=== PATIENT | female | born 1995 | race Caucasian/White ===

== ENCOUNTER → 2023-11-04 | Outpatient (CLI) | payer OTHER | LOC: COL.RAD 13:55 | DX: R74.8 Abnormal levels of other serum enzymes (principal) ==

== ENCOUNTER 2024-01-12 18:01 | Outpatient (CLI) | payer OTHER ==
[~2024-01-12] VITALS: Ht 154.9 cm; Wt 72.7 kg
--- NOTE | 2024-01-12 18:19 | NUR ---
1818- PT PRESENTS TO LDR COMPLAINING OF CRAMPING/CONTRACTIONS. AMBULATORY TO ROOM LR6, CHANGED INTO GOWN. 1829- EFM X2 APPLIED. PT REPORTS LOWER ABDOMINAL CRAMPING THAT COMES AND GOES ABOUT EVERY 5-10MIN. PT DENIES LEAKING FLUID, DENIES VAGINAL BLEEDING, AND STATES THAT SHE IS FEELING BABY MOVE LESS THAN NORMAL. PLAN OF CARE FOR LABOR CHECK DISCUSSED INCLUDING SVE AND UA. PT GIVES CONSENT FOR THESE. 1839- SVE BY THIS NURSE CLOSED, THICK AND HIGH. NO BLOOD NOTED WITH EXAM. 1844- NURSING ADMISSION HISTORY AND ASSESSMENT DONE. PT HAS PROVIDED URINE SAMPLE AND THIS IS SENT TO LAB. QUESTIONS ANSWERED AND PT DENIES FURTHER NEEDS AT THIS TIME. 1906- DR KANG CALLED CHARTED, ORDERS RECEIVED FOR DISMISSAL. 1911- PT OFF MONITORS FOR DISMISSAL. PT UPDATED ON LAB RESULTS AND DR PAUL. 1924- DISCHARGE INSTRUCTIONS GIVEN AND QUESTIONS ANSWERED. PT VERBALIZES UNDERSTANDING AND SIGNS PAPERWORK. PT DISMISSED TO HOME AMBULATORY.
[2024-01-12 18:56] LABS: COLLECTION METHOD CLEAN CATCH
[2024-01-12] MEDS ORDERED: LR 1,000 ML IV PRN (19:00)
[2024-01-12] MEDS ORDERED: TRANDATE 100MG100 MG PO (19:01)
[2024-01-12] MEDS ORDERED: PRILOTC PO (19:02)
[2024-01-12] MEDS ORDERED: QUALITY CHOICE1 TA7 (19:03)
[2024-01-12] MEDS ORDERED: ASPIRIN 81M81 MG/TA2 PO (19:03)
[2024-01-12 19:04] LABS: URINE APPEARANCE CLEAR (CLEAR/HAZY); URINE BLOOD NEGATIVE (NEGATIVE); URINE COLOR YELLOW (YELLOW); URINE GLUCOSE NEGATIVE (NEGATIVE); URINE KETONE NEGATIVE (NEGATIVE); URINE NITRATE NEGATIVE (NEGATIVE); URINE PROTEIN(semi-quant) NEGATIVE (NEGATIVE); URINE UROBILINOGEN 0.2 E.U/dL (0.2-1.0)
[2024-01-12 19:12] VITALS: BP 116/74; PULSE 87; TEMP 98.4
== END 2024-01-12 19:25 | disposition home or self-care (01) ==
LOC: LDRO 18:01
PROVIDERS: Obstetrics & Gynecology
DX: O47.03 False labor before 37 completed weeks of gestation, third trimester (principal); Z3A.31 31 weeks gestation of pregnancy

== ENCOUNTER 2024-02-23 18:30 | Inpatient (IN) | payer OTHER ==
[2024-02-23] VITALS (8 sets, daily range): BP systolic 101–133; BP diastolic 54–77; PULSE 72–103; TEMP 98.4
[~2024-02-23] VITALS: Wt 75.9 kg
[~2024-02-23 18:30] MED LIST: ASPIRIN 81M81 MG/TA2 PO; Acetaminophen 325 MG TAB PO PRN; Ibuprofen 600 MG TAB PO PRN; Ibuprofen 600 MG TAB PO SCH; Ketorolac 60 MG/2 ML VIAL IM ONE; LR & Oxytocin 500 ML IV SCH; LR 1,000 ML IV SCH; Loratadine 10 MG TAB PO PRN; Mag/Al Hydrox/Simeth Susp 30 ML CUP PO PRN; Measles/Mumps/Rubella Virus Vaccine Live w Diluent 0.5 ML VIAL SQ SCH; Meperidine 50 MG/ML 1 ML VIAL IV ONE; Ondansetron 4 MG/2 ML VIAL IV ONE; Ondansetron 4 MG/2 ML VIAL IV PRN; PRILOTC PO; Phenylephrine 10 MG/ML VIAL IV ONE; Phenylephrine/Mineral Oil/Petrolatum 57 GM TUBE RC PRN; QUALITY CHOICE1 TA7; Sennosides/Docusate 8.6-50 MG TAB PO SCH; TRANDATE 100MG100 MG PO; Witch Hazel 50% Pads Bulk TUB TP SCH; Zolpidem 5 MG TAB PO PRN; ceFAZolin 2 G VIAL IV ONE; dexAMETHasone 10 MG/ML VIAL IV ONE; oxyCODONE/Acetaminophen 5-325 MG TAB PO PRN
[2024-02-23] MEDS ORDERED: Magnes Hydrox (MOM) 80 MG/ML 30 ML CUP PO SCH (21:00)
[2024-02-24 07:00] VITALS: BP 117/70; PULSE 82; TEMP 97.9
[2024-02-24 14:00] VITALS: BP 114/76; PULSE 80; TEMP 98.9
--- NOTE | 2024-02-24 15:09 | NUR ---
SEE PAPER CHART FOR NOTES AND MEDICATIONS GIVEN.
[2024-02-24] MEDS ORDERED: Morphine 4 MG/ML VIAL IV PRN (18:30)
--- NOTE | 2024-02-24 19:01 | NUR ---
Due to downtime, documentation charted by Ya Valerio RN on EMR completed post-care; refer to scanned downtime paper documentation for full care documentation.
== END 2024-02-24 17:00 | disposition home or self-care (01) | DRG 787 ==
LOC: OB 18:30
PROVIDERS: ADMIT Obstetrics & Gynecology
PROC: 10D00Z1 Extraction of Products of Conception, Low, Open Approach (ICD-10-PCS; principal; 2024-02-23)
DX: O32.1XX0 Maternal care for breech presentation, not applicable or unspecified (principal); O10.913 Unspecified pre-existing hypertension complicating pregnancy, third trimester; O26.893 Other specified pregnancy related conditions, third trimester; Z37.0 Single live birth; Z67.11 Type A blood, Rh negative; Z3A.37 37 weeks gestation of pregnancy
CPT/HCPCS: J0690; J1100; J1885; J2175; J2270; J2371; J2405